=== PATIENT | female | born 1930 | race Caucasian/White ===

== ENCOUNTER 2018-12-06 06:52 | Inpatient (IN) | payer MEDICARE, OTHER ==
[2018-12-05 09:02] LABS: PARTIAL THROMBOPLASTIN TIME 31 SECONDS (22-32)
[2018-12-05 09:03] LABS: BASOPHILS % (AUTO) 0.9 % (0-1); EOSINOPHILS # (AUTO) 0.1 X10'3 (0-0.9); EOSINOPHILS % (AUTO) 1.9 % (0-6); HEMATOCRIT 34.3 % (35.0-45.0); HEMOGLOBIN 11.8 g/dl (12.0-16.0); LYMPHOCYTES # (AUTO) 1.1 X10'3 (1.1-4.8); MEAN CORPUSCULAR HEMOGLOBIN 35.7 PG (27.0-31.0); MEAN CORPUSCULAR HGB CONC 34.3 g/dL (33.0-36.5); MEAN CORPUSCULAR VOLUME 104.2 FL (78-98); MEAN PLATELET VOLUME 8.5 FL (7.4-10.4); MONOCYTES # (AUTO) 0.2 X10'3 (0-0.9); MONOCYTES % (AUTO) 7.1 % (2-12); NEUTROPHILS # (AUTO) 1.9 X10'3 (1.8-7.7); NEUTROPHILS % (AUTO) 57.1 % (42-75); PLATELET COUNT 114 X10'3 (140-440); RED CELL DISTRIBUTION WIDTH 14.5 % (11.5-14.5); WHITE BLOOD COUNT 3.2 X10'3 (4.5-11.0)
[2018-12-05 09:14] LABS: ALBUMIN 3.9 G/DL (3.4-5.0); ANION GAP 7 (8-16); BLOOD UREA NITROGEN 52 MG/DL (7-18); BUN/CREATININE RATIO 26.7 (6.6-38.0); CALCIUM 10.6 MG/DL (8.5-10.1); CHLORIDE 105 MMOL/L (99-107); CREATININE 1.95 MG/DL (0.40-0.90); GLUCOSE 88 MG/DL (70-104); POTASSIUM 4.3 MMOL/L (3.5-5.1); SODIUM 145 MMOL/L (135-145); TOTAL CARBON DIOXIDE 32.9 MMOL/L (24-32); eGFR 24 ML/MIN
[~2018-12-06] VITALS: Ht 154.9 cm; Wt 61.9 kg
[2018-12-06] VITALS (16 sets, daily range): BP systolic 98–158; BP diastolic 41–72
[~2018-12-06 06:52] MED LIST: ACID1TAB2 PO; ASPI-1053 PO; BIOT1TAB PO; CYAN500T63 PO; DOCU100C40 PO; FOLI-62 PO; HYDR12.522 PO; LISI40TA4 PO; MULT-1141 PO; NIT10P TD; OMEP40CA13 PO; OXYB5TAB80 PO; VERA240T PO; ZOC40T PO
[2018-12-06] MEDS ORDERED: diphenhydrAMINE 25mg capsule PO PRN ×2 (07:20→08:05)
[2018-12-06] MEDS ORDERED: LORazepam 0.5 MG tablet PO PRN ×2 (07:20→08:05)
[2018-12-06] MEDS ORDERED: sodium bicarbonate (8.4%) 1 mEq/ml syringe ONE (08:00)
[2018-12-06] MEDS ORDERED: amiodarone 50MG/ML inj IV ONE (08:00)
[2018-12-06] MEDS: normal saline 1,000 ML IV SCH ×2 (08:02→17:41)
[2018-12-06] MEDS ORDERED: LIDOcaine 1% (10mg/ml)w/preservative injection 20ml MDV ONE (08:03)
[2018-12-06] MEDS ORDERED: verapamil 2.5 mg/ml inj IV ONE (08:03)
[2018-12-06] MEDS ORDERED: nitroGLYCERIN-Tridil 50MG/D5W 250 ML IV ONE (08:03)
[2018-12-06] MEDS ORDERED: iohexol 350MG/ML 100ml bottle IV ONE (08:04)
[2018-12-06] MEDS ORDERED: iohexol 350 MG/ML 50ML vial IV ONE (08:04)
[2018-12-06] MEDS ORDERED: heparin 1,000unit/ml 10ml vial 10 ML ONE (08:04)
[2018-12-06] MEDS ORDERED: VERA120T7 PO (08:05)
[2018-12-06] MEDS ORDERED: FURO-150 PO (08:05)
[2018-12-06] MEDS ORDERED: LISI40TA4 PO (08:05)
[2018-12-06] MEDS ORDERED: ATOR80TA PO (08:05)
[2018-12-06] MEDS ORDERED: sodium bicarbonate (8.4%) inj. 100 ML in dextrose 5%-water 1,000 ML IV ONE (08:30)
[2018-12-06] MEDS ORDERED: midazolam 2 mg/2 ml injection ONE (08:32)
[2018-12-06] MEDS ORDERED: fentaNYL/PF 50MCG/1 ML 2ML syringe ONE ×2 (08:32→09:41)
[2018-12-06] MEDS ORDERED: heparin 10,000 units/1 ML INJ ONE (10:31)
[2018-12-06] MEDS ORDERED: rocuronium 10mg/ml inj IV ONE (10:35)
[2018-12-06] MEDS ORDERED: etomidate 2mg/ml inj. ONE (10:35)
[2018-12-06] MEDS ORDERED: amiodarone in dextrose, iso-osm 360mg/200ml bag IV ONE (10:36)
[2018-12-06] MEDS ORDERED: fentaNYL /PF 50mcg/ml 5ml ampule ONE (10:36)
[2018-12-06] MEDS ORDERED: sevoflurane 250ml liquid IH ONE (10:36)
[2018-12-06] MEDS ORDERED: ceFAZolin 1000mg inj ONE (11:22)
[2018-12-06] MEDS ORDERED: neostigmine methylsulfate 1 MG/ML 10ml vial ONE (12:31)
[2018-12-06 12:35] LABS: ISTAT CREATININE 1.7 mg/dL (0.6-1.1); ISTAT HGB 8.5 g/dl (12.0-16.0); ISTAT IONIZED CALCIUM 1.23 mmol/L (1.03-1.32); ISTAT K 3.5 mmol/L (3.5-5.1); POC BUN/CREATININE RATIO 28.2 (6.6-38.0)
[2018-12-06 12:51] LABS: ABG BASE EXCESS 1.4 mmol/L (-2.0-3.0); ABG HCO3 28.8 mmol/L (22.0-26.0); ABG OXYGEN SATURATION 96.5 % (95-98); ABG PH (T) 7.292 (7.350-7.450); FCOHb 0.3 % (0.5-1.5); FMetHb 0.2 % (0.3-1.12); TOTAL HEMOGLOBIN 10.1 G/dl (12.0-16.0)
[2018-12-06] MEDS: phenylephrine inj 20 MG in NS 250ml IV soln IV SCH ×3 (13:00→21:43)
--- NOTE | 2018-12-06 13:00 | NUR ---
Received from OR via , accompanied by Anesthesiologist Dr. Menendez and report given by Anesthesiolgist. Patient extibated whn Addendum: 12/06/18 at 1338 by Steffanie Yang RN patient extubated by Dr. Menendez when she arrived to room 2040. patient a&o, cl to right ij, ivf infusing as ordered, nichole infusing at mcg per min. 18 gauge piv to left ac. wound vac to right groin x2, at 125 cont as ordered. vss as charted.
--- NOTE | 2018-12-06 13:05 | NUR ---
patient recovered in icu room 2040
[2018-12-06] MEDS ORDERED: morphine 2 MG/ML inj. syringe IV PRN (13:15)
--- NOTE | 2018-12-06 13:15 | NUR ---
central saturated with serous drainage, dressing changed using sterile technique.
--- NOTE | 2018-12-06 13:41 | NUR ---
daughter flor at bedside
[2018-12-06] MEDS ORDERED: phenylephrine inj 20 MG in normal saline 250ml IV soln 248 ML IV SCH (13:45)
[2018-12-06] MEDS ORDERED: gelatin sponge, absorbable (Gelfoam 12-7MM) sponge TP ONE ×2 (13:50→13:55)
--- NOTE | 2018-12-06 13:58 | NUR ---
Bedside report given to Julee RN all questions and concerns addressed.
[2018-12-06] MEDS ORDERED: gelatin sponge, absorbable (Gelfoam-100 compressed) sponge TP ONE (15:05)
[2018-12-06] MEDS ORDERED: VERA300C6 PO (17:25)
[2018-12-06] MEDS ORDERED: FURO40TA4 PO (17:25)
--- NOTE | 2018-12-06 19:00 | NUR ---
Patient in room ICU 2040. I have received report from Summer MULLIGAN and had the opportunity to ask questions and assume patient care.
[2018-12-06] MEDS: docusate sod 100mg capsule PO SCH (20:00)
--- NOTE | 2018-12-06 20:30 | NUR ---
Dr Ridley at bedside, updated on patients current condition and concerns. POC reviewed. Will continue to monitor closely.
[2018-12-06 21:02] LABS: BASOPHILS % (AUTO) 0.4 % (0-1); EOSINOPHILS % (AUTO) 0.3 % (0-6); HEMATOCRIT 22.4 % (35.0-45.0); HEMOGLOBIN 7.8 g/dl (12.0-16.0); LYMPHOCYTES # (AUTO) 0.5 X10'3 (1.1-4.8); LYMPHOCYTES % (AUTO) 8.2 % (21-51); MEAN CORPUSCULAR HEMOGLOBIN 35.1 PG (27.0-31.0); MEAN CORPUSCULAR HGB CONC 34.9 g/dL (33.0-36.5); MEAN CORPUSCULAR VOLUME 100.6 FL (78-98); MEAN PLATELET VOLUME 8.8 FL (7.4-10.4); MONOCYTES # (AUTO) 0.4 X10'3 (0-0.9); MONOCYTES % (AUTO) 6.2 % (2-12); NEUTROPHILS # (AUTO) 5.6 X10'3 (1.8-7.7); NEUTROPHILS % (AUTO) 84.9 % (42-75); PLATELET COUNT 81 X10'3 (140-440); RED BLOOD COUNT 2.23 X10'6 (4.20-5.60); RED CELL DISTRIBUTION WIDTH 16.1 % (11.5-14.5); WHITE BLOOD COUNT 6.6 X10'3 (4.5-11.0)
[2018-12-06] MEDS: acetaminophen w/codeine (30MG) #3 tablet PO PRN (21:38)
[2018-12-07] VITALS (24 sets, daily range): BP systolic 85–122; BP diastolic 35–75
[2018-12-07] MEDS: phenylephrine inj 20 MG in NS 250ml IV soln IV SCH ×3 (01:22→19:50)
[2018-12-07 03:15] LABS: BASOPHILS % (AUTO) 0.6 % (0-1); EOSINOPHILS % (AUTO) 0.1 % (0-6); HEMATOCRIT 26.1 % (35.0-45.0); HEMOGLOBIN 9.1 g/dl (12.0-16.0); LYMPHOCYTES # (AUTO) 0.8 X10'3 (1.1-4.8); LYMPHOCYTES % (AUTO) 13.2 % (21-51); MEAN CORPUSCULAR HEMOGLOBIN 35.1 PG (27.0-31.0); MEAN CORPUSCULAR HGB CONC 34.9 g/dL (33.0-36.5); MEAN CORPUSCULAR VOLUME 100.4 FL (78-98); MONOCYTES # (AUTO) 0.5 X10'3 (0-0.9); MONOCYTES % (AUTO) 7.8 % (2-12); NEUTROPHILS # (AUTO) 4.8 X10'3 (1.8-7.7); NEUTROPHILS % (AUTO) 78.3 % (42-75); PLATELET COUNT 90 X10'3 (140-440); RED CELL DISTRIBUTION WIDTH 16.4 % (11.5-14.5); WHITE BLOOD COUNT 6.1 X10'3 (4.5-11.0)
[2018-12-07] MEDS: acetaminophen w/codeine (30MG) #3 tablet PO PRN ×2 (03:34→20:01)
[2018-12-07 04:07] LABS: ALANINE AMINOTRANSFERASE 42 U/L (12-78); ALBUMIN 3.3 G/DL (3.4-5.0); ALBUMIN/GLOBULIN RATIO 1.4 (1.1-1.5); ALKALINE PHOSPHATASE 49 IU/L (46-116); ANION GAP 8 (8-16); ASPARTATE AMINO TRANSFERASE 48 U/L (10-37); BILIRUBIN,TOTAL 1.9 MG/DL (0.1-1.0); BLOOD UREA NITROGEN 41 MG/DL (7-18); BUN/CREATININE RATIO 27.5 (6.6-38.0); CALCIUM 9.1 MG/DL (8.5-10.1); CHLORIDE 107 MMOL/L (99-107); CREATININE 1.49 MG/DL (0.40-0.90); GLUCOSE 101 MG/DL (70-104); MAGNESIUM 1.6 MG/DL (1.5-2.4); POTASSIUM 3.7 MMOL/L (3.5-5.1); SODIUM 146 MMOL/L (135-145); TOTAL CARBON DIOXIDE 31.3 MMOL/L (24-32); TOTAL PROTEIN 5.6 G/DL (6.4-8.2); eGFR 33 ML/MIN
[2018-12-07] MEDS: normal saline 1,000 ML IV SCH ×2 (05:03→08:58)
[2018-12-07 06:16] LABS: ISTAT HGB ART 10.9 g/dl (12.0-16.0); ISTAT Hct ART 32 %PCV (35-48); ISTAT O2 SATURATION ARTERIAL 98 % (95-98); ISTAT SOURCE ART
--- NOTE | 2018-12-07 06:28 | NUR ---
Problems reprioritized. Patient report given, questions answered & plan of care reviewed with Lev MULLIGAN.
[2018-12-07] MEDS: docusate sod 100mg capsule PO SCH ×2 (08:01→20:01)
[2018-12-07] MEDS ORDERED: ondansetron/PF 4mg/2ml inj ONE (09:57)
[2018-12-07] MEDS ORDERED: ondansetron/PF 4mg/2ml inj IV PRN (10:00)
[2018-12-07] MEDS: midodrine tablet 2.5 MG TABLET PO SCH ×2 (13:29→20:01)
--- NOTE | 2018-12-07 18:30 | NUR ---
Patient in room ICU 2040. I have received report from Lev MULLIGAN and had the opportunity to ask questions and assume patient care.
--- NOTE | 2018-12-07 20:00 | NUR ---
Patients BP continues to decrease. Increased per MD order. Will continue to monitor closely.
--- NOTE | 2018-12-07 22:00 | NUR ---
Patient wakes up and is confused to where she is. Patient acknowledges that she is confused and very pleasant. Reoriented patient to time and place. Patient currently sleeping. Daughter Carmen states that patient is normally wakes up at night ans is slightly confused and has vivid dreams.
[2018-12-08] VITALS (24 sets, daily range): BP systolic 91–125; BP diastolic 45–64
[2018-12-08] MEDS: phenylephrine inj 20 MG in NS 250ml IV soln IV SCH ×5 (00:12→23:54)
[2018-12-08 02:25] LABS: BASOPHILS # (AUTO) 0.1 X10'3 (0-0.2); BASOPHILS % (AUTO) 0.8 % (0-1); EOSINOPHILS # (AUTO) 0.1 X10'3 (0-0.9); EOSINOPHILS % (AUTO) 1.5 % (0-6); HEMATOCRIT 25.5 % (35.0-45.0); HEMOGLOBIN 8.8 g/dl (12.0-16.0); LYMPHOCYTES # (AUTO) 1.5 X10'3 (1.1-4.8); LYMPHOCYTES % (AUTO) 20.1 % (21-51); MEAN CORPUSCULAR HEMOGLOBIN 35.2 PG (27.0-31.0); MEAN CORPUSCULAR HGB CONC 34.3 g/dL (33.0-36.5); MEAN CORPUSCULAR VOLUME 102.7 FL (78-98); MEAN PLATELET VOLUME 8.6 FL (7.4-10.4); MONOCYTES # (AUTO) 0.7 X10'3 (0-0.9); MONOCYTES % (AUTO) 9.4 % (2-12); NEUTROPHILS # (AUTO) 4.9 X10'3 (1.8-7.7); NEUTROPHILS % (AUTO) 68.2 % (42-75); PLATELET COUNT 94 X10'3 (140-440); RED BLOOD COUNT 2.48 X10'6 (4.20-5.60); RED CELL DISTRIBUTION WIDTH 15.9 % (11.5-14.5); WHITE BLOOD COUNT 7.2 X10'3 (4.5-11.0)
[2018-12-08 02:35] LABS: ALBUMIN 2.9 G/DL (3.4-5.0); ANION GAP 4 (8-16); BLOOD UREA NITROGEN 33 MG/DL (7-18); BUN/CREATININE RATIO 23.1 (6.6-38.0); CALCIUM 9.7 MG/DL (8.5-10.1); CHLORIDE 107 MMOL/L (99-107); CREATININE 1.43 MG/DL (0.40-0.90); GLUCOSE 106 MG/DL (70-104); POTASSIUM 3.8 MMOL/L (3.5-5.1); SODIUM 143 MMOL/L (135-145); TOTAL CARBON DIOXIDE 31.9 MMOL/L (24-32); eGFR 35 ML/MIN
[2018-12-08 02:47] LABS: MAGNESIUM 1.6 MG/DL (1.5-2.4)
[2018-12-08] MEDS ORDERED: amiodarone 150mg/dext, iso-os 100 ML IV ONE (03:20)
[2018-12-08] MEDS ORDERED: magnesium 4gm in 100ml NS 100 ML IV PRN (03:20)
--- NOTE | 2018-12-08 03:24 | NUR ---
patient had 36 beat run of VTA, labs drawn, Dr Ridley call and new orders received. Per Dr Ridley keep MG above 2 and K above 4. One time dose of amio. Will continue to monitor.
[2018-12-08] MEDS: magnesium 2GM in 50ml NS 50 ML IV PRN (03:40)
[2018-12-08] MEDS: potassium Cl 20mEq/100mL bag 100 ML IV PRN ×2 (04:12→04:17)
[2018-12-08] MEDS: docusate sod 100mg capsule PO SCH ×2 (08:04→20:46)
[2018-12-08] MEDS: midodrine tablet 2.5 MG TABLET PO SCH (08:04)
[2018-12-08 09:38] LABS: MAGNESIUM 2.1 MG/DL (1.5-2.4); POTASSIUM 4.5 MMOL/L (3.5-5.1)
[2018-12-08] MEDS ORDERED: normal saline 500ml IV soln 500 ML IV ONE (17:40)
[2018-12-08] MEDS: midodrine 5mg tablet PO SCH (17:56)
[2018-12-08] MEDS ORDERED: midodrine 5mg tablet PO SCH (18:00)
[2018-12-08] MEDS: acetaminophen w/codeine (30MG) #3 tablet PO PRN (20:47)
[2018-12-08] MEDS: normal saline 1,000 ML IV SCH (21:03)
[2018-12-09] VITALS (22 sets, daily range): BP systolic 94–113; BP diastolic 42–60
[2018-12-09 03:59] LABS: BASOPHILS % (AUTO) 0.6 % (0-1); EOSINOPHILS # (AUTO) 0.2 X10'3 (0-0.9); EOSINOPHILS % (AUTO) 2.9 % (0-6); HEMATOCRIT 24.5 % (35.0-45.0); HEMOGLOBIN 8.3 g/dl (12.0-16.0); LYMPHOCYTES # (AUTO) 1.7 X10'3 (1.1-4.8); LYMPHOCYTES % (AUTO) 22.1 % (21-51); MEAN CORPUSCULAR HEMOGLOBIN 35.1 PG (27.0-31.0); MEAN CORPUSCULAR HGB CONC 33.8 g/dL (33.0-36.5); MEAN CORPUSCULAR VOLUME 103.9 FL (78-98); MEAN PLATELET VOLUME 8.8 FL (7.4-10.4); MONOCYTES # (AUTO) 0.5 X10'3 (0-0.9); MONOCYTES % (AUTO) 7.2 % (2-12); NEUTROPHILS # (AUTO) 5.1 X10'3 (1.8-7.7); NEUTROPHILS % (AUTO) 67.2 % (42-75); PLATELET COUNT 102 X10'3 (140-440); RED BLOOD COUNT 2.35 X10'6 (4.20-5.60); RED CELL DISTRIBUTION WIDTH 15.8 % (11.5-14.5); WHITE BLOOD COUNT 7.6 X10'3 (4.5-11.0)
[2018-12-09] MEDS: phenylephrine inj 20 MG in NS 250ml IV soln IV SCH ×2 (04:03→18:45)
[2018-12-09 04:15] LABS: ALANINE AMINOTRANSFERASE 39 U/L (12-78); ALBUMIN 2.8 G/DL (3.4-5.0); ALBUMIN/GLOBULIN RATIO 1.1 (1.1-1.5); ALKALINE PHOSPHATASE 44 IU/L (46-116); ANION GAP 5 (8-16); ASPARTATE AMINO TRANSFERASE 40 U/L (10-37); BILIRUBIN,TOTAL 1.2 MG/DL (0.1-1.0); BLOOD UREA NITROGEN 33 MG/DL (7-18); BUN/CREATININE RATIO 23.7 (6.6-38.0); CALCIUM 8.7 MG/DL (8.5-10.1); CHLORIDE 107 MMOL/L (99-107); CREATININE 1.39 MG/DL (0.40-0.90); GLUCOSE 103 MG/DL (70-104); MAGNESIUM 1.9 MG/DL (1.5-2.4); POTASSIUM 4.4 MMOL/L (3.5-5.1); SODIUM 141 MMOL/L (135-145); TOTAL CARBON DIOXIDE 28.7 MMOL/L (24-32); TOTAL PROTEIN 5.4 G/DL (6.4-8.2); eGFR 36 ML/MIN
--- NOTE | 2018-12-09 06:30 | NUR ---
Patient in room ICU 2040. I have received report from ESE Ladd and had the opportunity to ask questions and assume patient care.
--- NOTE | 2018-12-09 06:54 | NUR ---
report to Jorge MULLIGAN
[2018-12-09] MEDS: midodrine 5mg tablet PO SCH ×2 (07:47→20:20)
[2018-12-09] MEDS: docusate sod 100mg capsule PO SCH ×2 (07:47→20:20)
--- NOTE | 2018-12-09 08:32 | NUR ---
UA sent @0800. notified of possible transfer to [facility] for a TAVER r/t Aortic Stenosis. Awaiting notfication
[2018-12-09 09:39] LABS: CLARITY,URINE CLEAR (Clear); COLOR,URINE YELLOW (Yellow); GLUCOSE, URINE NEGATIVE (Neg); KETONES,URINE NEGATIVE (Neg); LEUKOCYTE ESTERASE ,URINE NEGATIVE (Neg); NITRITES, URINE NEGATIVE (Neg); OCCULT BLOOD,URINE SMALL (Neg); PH,URINE 5.5 (4.8-8.0); PROTEIN,URINE TRACE mg/dl (Neg)
[2018-12-09 09:41] LABS: TOTAL PROTEIN,URINE RANDOM 40.1 MG/DL
[2018-12-09 09:43] LABS: SODIUM,URINE RANDOM < 15 MEQ/L
[2018-12-09 09:45] LABS: UA COLLECTION TYPE FOLEY CATH
[2018-12-09 09:46] LABS: BACTERIA,URINE FEW /HPF (Neg); MUCUS STRANDS FEW /LPF (Neg); SQUAMOUS EPITHELIAL CELL,UR FEW /LPF (FEW); TRANSITIONAL EPI CELLS,URINE FEW /HPF; WBC,URINE 0-4 /HPF (0-4)
[2018-12-09 09:47] LABS: COARSE GRANULAR CAST 0-3 /LPF (NEGATIVE); FINE GRANULAR CAST 0-3 /LPF (NEGATIVE)
[2018-12-09 10:33] LABS: UA EOSINOPHILS NO EOS /HPF
--- NOTE | 2018-12-09 18:15 | NUR ---
Report to ESE Fiore
--- NOTE | 2018-12-09 18:30 | NUR ---
Patient in room ICU 2040. I have received report from ESE Patel and had the opportunity to ask questions and assume patient care.
[2018-12-09] MEDS ORDERED: magnesium hydroxide 30ml (MOM) UD suspension PO ONE (19:15)
[2018-12-09] MEDS: normal saline 1,000 ML IV SCH (22:47)
[2018-12-09] MEDS: acetaminophen w/codeine (30MG) #3 tablet PO PRN (23:55)
[2018-12-10] VITALS (21 sets, daily range): BP systolic 90–164; BP diastolic 37–97
[2018-12-10] MEDS: phenylephrine inj 20 MG in NS 250ml IV soln IV SCH ×3 (01:37→16:05)
[2018-12-10 03:45] LABS: BASOPHILS % (AUTO) 0.5 % (0-1); EOSINOPHILS # (AUTO) 0.3 X10'3 (0-0.9); EOSINOPHILS % (AUTO) 3.7 % (0-6); HEMOGLOBIN 8.2 g/dl (12.0-16.0); LYMPHOCYTES # (AUTO) 1.7 X10'3 (1.1-4.8); LYMPHOCYTES % (AUTO) 23.5 % (21-51); MEAN CORPUSCULAR HEMOGLOBIN 35.5 PG (27.0-31.0); MEAN CORPUSCULAR HGB CONC 34.1 g/dL (33.0-36.5); MEAN CORPUSCULAR VOLUME 103.8 FL (78-98); MEAN PLATELET VOLUME 8.4 FL (7.4-10.4); MONOCYTES # (AUTO) 0.5 X10'3 (0-0.9); MONOCYTES % (AUTO) 6.6 % (2-12); NEUTROPHILS # (AUTO) 4.7 X10'3 (1.8-7.7); NEUTROPHILS % (AUTO) 65.7 % (42-75); PLATELET COUNT 118 X10'3 (140-440); RED BLOOD COUNT 2.32 X10'6 (4.20-5.60); WHITE BLOOD COUNT 7.2 X10'3 (4.5-11.0)
[2018-12-10 04:00] LABS: ALANINE AMINOTRANSFERASE 36 U/L (12-78); ALBUMIN 2.2 G/DL (3.4-5.0); ALKALINE PHOSPHATASE 39 IU/L (46-116); ANION GAP 8 (8-16); ASPARTATE AMINO TRANSFERASE 34 U/L (10-37); BILIRUBIN,TOTAL 1.1 MG/DL (0.1-1.0); BLOOD UREA NITROGEN 32 MG/DL (7-18); BUN/CREATININE RATIO 30.5 (6.6-38.0); CALCIUM 7.1 MG/DL (8.5-10.1); CHLORIDE 111 MMOL/L (99-107); CREATININE 1.05 MG/DL (0.40-0.90); GLUCOSE 91 MG/DL (70-104); MAGNESIUM 1.6 MG/DL (1.5-2.4); POTASSIUM 3.7 MMOL/L (3.5-5.1); SODIUM 142 MMOL/L (135-145); TOTAL CARBON DIOXIDE 22.9 MMOL/L (24-32); TOTAL PROTEIN 4.4 G/DL (6.4-8.2); eGFR 50 ML/MIN
[2018-12-10] MEDS: magnesium 2GM in 50ml NS 50 ML IV PRN (04:25)
--- NOTE | 2018-12-10 06:48 | NUR ---
Problems reprioritized. Patient report given, questions answered & plan of care reviewed with ESE Gracia.
--- NOTE | 2018-12-10 07:00 | NUR ---
Patient in room ICU 2040. I have received report from ESE Kim and had the opportunity to ask questions and assume patient care.
[2018-12-10] MEDS: docusate sod 100mg capsule PO SCH ×2 (07:49→20:06)
[2018-12-10] MEDS: midodrine 5mg tablet PO SCH ×2 (07:49→20:06)
[2018-12-10] MEDS: potassium Cl 20mEq/100mL bag 100 ML IV PRN (07:51)
[2018-12-10] MEDS: normal saline 1,000 ML IV SCH ×2 (13:03→17:09)
[2018-12-10] MEDS ORDERED: pantoprazole 40mg Tablet.DR PO SCH (17:30)
--- NOTE | 2018-12-10 18:43 | NUR ---
Problems reprioritized. Patient report given, questions answered & plan of care reviewed with ESE Wilson.
--- NOTE | 2018-12-10 18:45 | NUR ---
Patient in room ICU 2040. I have received report from ESE Gracia and had the opportunity to ask questions and assume patient care.
--- NOTE | 2018-12-10 19:30 | NUR ---
Patient to be transferred to [facility] for TAVR procedure. [facility] called with bed assignment and accepting MD. support architect aware and is working on transport for patient.
--- NOTE | 2018-12-10 20:30 | NUR ---
Report given to transporting [employer] Bogdan with [employer]. All questions answered.
--- NOTE | 2018-12-10 20:41 | NUR ---
Report called to [facility] [place] [facility]. Bed # [id number]. Alexis RN is the accepting RN. All questions answered. [facility] transport team here, ETA to [facility] approx. 1.5 hours.
[2018-12-10] MEDS ORDERED: atorvastatin 20mg tablet PO SCH (21:00)
--- NOTE | 2018-12-10 21:50 | NUR ---
Patient transferred to transport [facility]. Wound Vac with patient. Patient placed on transport monitor by transport team. IV medications infusing per MD order. Addendum: 12/10/18 at 2211 by Kylah Rowe RN Patients daughter Carmen at bedside during transfer. All patients personal belongings home with daughter. Patient transferred out of unit to [facility] helicopter without incident.
[2018-12-11] MEDS ORDERED: aspirin 81mg tab.chew PO SCH (08:00)
[2018-12-12 12:41] LABS: ISTAT Hct MIX 32 %PCV (35-48); ISTAT O2 SATURATION MIX VENOUS 60 % (60-80); ISTAT SOURCE MIX
== END 2018-12-10 22:51 | disposition short-term general hospital (02) | DRG 252 ==
LOC: SSTAY O 06:52 → ICU 2S 13:00
PROVIDERS: ADMIT Internal Medicine Cardiovascular Disease; ATTEND Internal Medicine Cardiovascular Disease
PROC: 04QK0ZZ Repair Right Femoral Artery, Open Approach (ICD-10-PCS; 2018-12-06)
PROC: 02HV33Z Insertion of Infusion Device into Superior Vena Cava, Percutaneous Approach (ICD-10-PCS; 2018-12-06)
PROC: 4A023N8 Measurement of Cardiac Sampling and Pressure, Bilateral, Percutaneous Approach (ICD-10-PCS; 2018-12-06)
PROC: B2111ZZ Fluoroscopy of Multiple Coronary Arteries using Low Osmolar Contrast (ICD-10-PCS; 2018-12-06)
PROC: B2151ZZ Fluoroscopy of Left Heart using Low Osmolar Contrast (ICD-10-PCS; 2018-12-06)
PROC: 30233N1 Transfusion of Nonautologous Red Blood Cells into Peripheral Vein, Percutaneous Approach (ICD-10-PCS; principal; 2018-12-06 10:36)
DX: I08.3 Combined rheumatic disorders of mitral, aortic and tricuspid valves (principal); N17.0 Acute kidney failure with tubular necrosis; I13.0 Hypertensive heart and chronic kidney disease with heart failure and stage 1 through stage 4 chronic kidney disease, or unspecified chronic kidney disease; I50.32 Chronic diastolic (congestive) heart failure; I77.0 Arteriovenous fistula, acquired; E78.5 Hyperlipidemia, unspecified; I25.10 Atherosclerotic heart disease of native coronary artery without angina pectoris; R58 Hemorrhage, not elsewhere classified; I27.20 Pulmonary hypertension, unspecified; I95.9 Hypotension, unspecified; K21.9 Gastro-esophageal reflux disease without esophagitis; M19.90 Unspecified osteoarthritis, unspecified site; G47.33 Obstructive sleep apnea (adult) (pediatric); Z96.652 Presence of left artificial knee joint; N18.3 Chronic kidney disease, stage 3 (moderate); Z80.0 Family history of malignant neoplasm of digestive organs; Z90.13 Acquired absence of bilateral breasts and nipples; Z88.6 Allergy status to analgesic agent; Z79.82 Long term (current) use of aspirin; Z88.8 Allergy status to other drugs, medicaments and biological substances; Z79.899 Other long term (current) drug therapy; Z82.49 Family history of ischemic heart disease and other diseases of the circulatory system; Z98.42 Cataract extraction status, left eye; Z98.41 Cataract extraction status, right eye; Z90.49 Acquired absence of other specified parts of digestive tract; Z83.3 Family history of diabetes mellitus
CPT/HCPCS: 36415; 36600; 71045; 76775; 80047; 80048; 80053; 81001; 82570; 82803; 83735; 83880; 84132; 84156; 84300; 85014; 85018; 85025; 85610; 85730; 86885; 86900; 86901; 86920; 87207; 93005; 93460; 93926; 94002; 97116; 97161; 97530; 99152; 99153; A4618; A4620; A5120; A6258; A7000; C1760; C1769; C1894; G0378; J0282; J0690; J1644; J2001; J2250; J2370; J2405; J2710; J3010; J3475; J3480; J3490; J7030; J7040; J7050; J7120; P9016; Q0163; Q9967

== ENCOUNTER 2019-01-03 10:30 | Outpatient (CLI) | payer MEDICARE, OTHER ==
[~2019-01-03 10:30] MED LIST changes: -ACID1TAB2 PO; +ATOR80TA PO; -BIOT1TAB PO; -CYAN500T63 PO; -DOCU100C40 PO; -FOLI-62 PO; +FURO40TA4 PO; -HYDR12.522 PO; -MULT-1141 PO; -NIT10P TD; -OXYB5TAB80 PO; -VERA240T PO; +VERA300C6 PO; -ZOC40T PO
== END 2019-01-03 23:59 | disposition home or self-care (01) ==
LOC: VAS 10:30
PROVIDERS: ATTEND Internal Medicine Cardiovascular Disease
DX: M79.604 Pain in right leg (principal); R60.0 Localized edema; I10 Essential (primary) hypertension
CPT/HCPCS: 93971

== ENCOUNTER 2019-04-12 10:40 | Emergency (ER) | payer MEDICARE, OTHER ==
[~2019-04-12] VITALS: Ht 157.5 cm; Wt 64.0 kg
[2019-04-12 11:14] LABS: BASOPHILS % (AUTO) 1.1 % (0-1); EOSINOPHILS # (AUTO) 0.2 X10'3 (0-0.9); EOSINOPHILS % (AUTO) 5.2 % (0-6); HEMATOCRIT 31.2 % (35.0-45.0); HEMOGLOBIN 10.8 g/dl (12.0-16.0); LYMPHOCYTES # (AUTO) 1.1 X10'3 (1.1-4.8); LYMPHOCYTES % (AUTO) 27.3 % (21-51); MEAN CORPUSCULAR HEMOGLOBIN 35.8 PG (27.0-31.0); MEAN CORPUSCULAR HGB CONC 34.7 g/dL (33.0-36.5); MEAN CORPUSCULAR VOLUME 103.1 FL (78-98); MEAN PLATELET VOLUME 8.2 FL (7.4-10.4); MONOCYTES # (AUTO) 0.3 X10'3 (0-0.9); MONOCYTES % (AUTO) 6.6 % (2-12); NEUTROPHILS # (AUTO) 2.5 X10'3 (1.8-7.7); NEUTROPHILS % (AUTO) 59.8 % (42-75); PLATELET COUNT 160 X10'3 (140-440); RED BLOOD COUNT 3.03 X10'6 (4.20-5.60); RED CELL DISTRIBUTION WIDTH 15.1 % (11.5-14.5); WHITE BLOOD COUNT 4.1 X10'3 (4.5-11.0)
[2019-04-12 11:23] LABS: ALANINE AMINOTRANSFERASE 41 U/L (12-78); ALBUMIN 3.8 G/DL (3.4-5.0); ALBUMIN/GLOBULIN RATIO 1.3 (1.1-1.5); ALKALINE PHOSPHATASE 71 IU/L (46-116); ANION GAP 6 (8-16); ASPARTATE AMINO TRANSFERASE 79 U/L (10-37); BILIRUBIN,TOTAL 1.3 MG/DL (0.1-1.0); BLOOD UREA NITROGEN 25 MG/DL (7-18); BUN/CREATININE RATIO 16.7 (6.6-38.0); CALCIUM 9.7 MG/DL (8.5-10.1); CHLORIDE 106 MMOL/L (99-107); GLUCOSE 101 MG/DL (70-104); POTASSIUM 4.6 MMOL/L (3.5-5.1); SODIUM 141 MMOL/L (135-145); TOTAL CARBON DIOXIDE 29.1 MMOL/L (24-32); TOTAL PROTEIN 6.7 G/DL (6.4-8.2); eGFR 33 ML/MIN
[2019-04-12 11:27] LABS: AMYLASE 94 U/L (25-115); TROPONIN I 0.05 NG/ML (0.0-0.05)
[2019-04-12 11:39] LABS: LYMPHOCYTES % (MANUAL) 30 % (21-51); TOTAL CELLS COUNTED 100
[2019-04-12 11:40] LABS: EOSINOPHILS % (MANUAL) 4 % (0-6); PLATELET ESTIMATE NORMAL
[2019-04-12] MEDS ORDERED: niCARDipine-NS 40mg/200ml IVPB 200 ML IV SCH (12:20)
[2019-04-12 17:11] VITALS: BP 177/98
== END 2019-04-12 17:13 | disposition short-term general hospital (02) ==
LOC: ER 10:40
DX: I60.9 Nontraumatic subarachnoid hemorrhage, unspecified (principal); S06.5X9A Traumatic subdural hemorrhage with loss of consciousness of unspecified duration, initial encounter; S61.412A Laceration without foreign body of left hand, initial encounter; S61.411A Laceration without foreign body of right hand, initial encounter; I25.10 Atherosclerotic heart disease of native coronary artery without angina pectoris; I10 Essential (primary) hypertension; K21.9 Gastro-esophageal reflux disease without esophagitis; M19.90 Unspecified osteoarthritis, unspecified site; Z98.890 Other specified postprocedural states; Z88.0 Allergy status to penicillin; Z88.5 Allergy status to narcotic agent; Z88.8 Allergy status to other drugs, medicaments and biological substances; Z79.82 Long term (current) use of aspirin; Z79.899 Other long term (current) drug therapy; W18.39XA Other fall on same level, initial encounter; Y93.89 Activity, other specified; Y92.89 Other specified places as the place of occurrence of the external cause; Y99.8 Other external cause status
CPT/HCPCS: 36415; 70450; 71045; 72125; 73030; 80053; 82150; 84484; 85007; 85025; 93005; 99285

== ENCOUNTER 2019-09-14 22:11 | Inpatient (IN) | payer MEDICARE, OTHER ==
[~2019-09-14] VITALS: Ht 167.6 cm; Wt 69.0 kg
--- NOTE | 2019-09-14 22:53 | NUR ---
PT'S DAUGHTER ROSY- PHONE NUMBER [phone]
[2019-09-15] VITALS (18 sets, daily range): BP systolic 105–193; BP diastolic 37–78
[2019-09-15] MEDS ORDERED: morphine 4 MG/ML inj SYRINge IV ONE (00:30)
[2019-09-15] MEDS ORDERED: ketorolac trometh. 30mg/ml inj. IV ONE (00:30)
[2019-09-15 01:35] LABS: ALBUMIN 3.8 G/DL (3.4-5.0); ANION GAP 6 (8-16); BLOOD UREA NITROGEN 34 MG/DL (7-18); CALCIUM 9.4 MG/DL (8.5-10.1); CHLORIDE 107 MMOL/L (99-107); CREATININE 1.62 MG/DL (0.40-0.90); GLUCOSE 139 MG/DL (70-104); SODIUM 140 MMOL/L (135-145); TOTAL CARBON DIOXIDE 27.3 MMOL/L (24-32); eGFR 30 ML/MIN
[2019-09-15 01:49] LABS: BASOPHILS % (AUTO) 0.4 % (0-1); EOSINOPHILS # (AUTO) 0.2 X10'3 (0-0.9); EOSINOPHILS % (AUTO) 2.9 % (0-6); HEMATOCRIT 31.7 % (35.0-45.0); LYMPHOCYTES # (AUTO) 1.3 X10'3 (1.1-4.8); LYMPHOCYTES % (AUTO) 19.3 % (21-51); MEAN CORPUSCULAR HEMOGLOBIN 36.1 PG (27.0-31.0); MEAN CORPUSCULAR HGB CONC 34.7 g/dL (33.0-36.5); MEAN CORPUSCULAR VOLUME 103.9 FL (78-98); MEAN PLATELET VOLUME 8.8 FL (7.4-10.4); MONOCYTES # (AUTO) 0.5 X10'3 (0-0.9); NEUTROPHILS # (AUTO) 4.9 X10'3 (1.8-7.7); NEUTROPHILS % (AUTO) 70.4 % (42-75); PLATELET COUNT 161 X10'3 (140-440); RED BLOOD COUNT 3.05 X10'6 (4.20-5.60); RED CELL DISTRIBUTION WIDTH 13.7 % (11.5-14.5); WHITE BLOOD COUNT 6.9 X10'3 (4.5-11.0)
[2019-09-15 01:54] LABS: POTASSIUM 4.6 MMOL/L (3.5-5.1)
[2019-09-15] MEDS ORDERED: potassium CL 10mEq/100ml bag 100 ML IV PRN ×2 (03:00)
[2019-09-15] MEDS ORDERED: ondansetron/PF 4mg/2ml inj IV PRN ×2 (03:00→07:25)
[2019-09-15] MEDS ORDERED: potassium Cl 20 mEq SR tablet PO PRN ×2 (03:00)
[2019-09-15] MEDS ORDERED: morphine 2 MG/ML inj. syringe IV PRN ×3 (03:00→07:25)
[2019-09-15] MEDS ORDERED: magnesium hydroxide 30ml (MOM) UD suspension PO PRN (03:00)
[2019-09-15] MEDS ORDERED: acetaminophen 325mg tablet PO PRN (03:00)
[2019-09-15] MEDS ORDERED: mag hydrox/Alum hydrox/simeth 30ml oral suspension PO PRN (03:00)
--- NOTE | 2019-09-15 03:25 | NUR ---
Received report from Dm MULLIGAN in the ER. Patient is being brought up to O/N and will be in room 4021A.
[2019-09-15] MEDS: normal saline 1000ml 1,000 ML IV SCH ×2 (04:12→20:10)
--- NOTE | 2019-09-15 06:22 | NUR ---
Problems reprioritized. Patient report given, questions answered & plan of care reviewed with Angela MULLIGAN.
[2019-09-15] MEDS ORDERED: TRANEXAMIC ACID 1 GM IN NACL,ISO-OS 100 ML IV ONE (07:00)
[2019-09-15] MEDS ORDERED: ringers solution, lacted 1,000 ML IV SCH (07:21)
[2019-09-15] MEDS ORDERED: morphine 4 MG/ML inj SYRINge IV PRN (07:25)
[2019-09-15] MEDS ORDERED: proCHLORperazine 10 MG/2 ml inj IV PRN (07:25)
[2019-09-15] MEDS ORDERED: meperidine/PF 25mg/ml syringe IV PRN ×3 (07:25)
[2019-09-15] MEDS: lisinopril 20mg tablet PO SCH (07:44)
[2019-09-15] MEDS: amiodarone 100mg tablet PO SCH (07:44)
[2019-09-15] MEDS: pantoprazole 40mg Tablet.DR PO SCH (07:44)
[2019-09-15] MEDS: K and/or MAG REPLACEMENT MC SCH ×2 (08:00→19:36)
[2019-09-15] MEDS ORDERED: ePHEDrine 50MG/ML INJ. ONE (08:20)
[2019-09-15] MEDS ORDERED: fentaNYL/PF 50MCG/1 ML 2ML syringe ONE (08:29)
[2019-09-15] MEDS ORDERED: midazolam 2 mg/2 ml injection ONE (08:29)
[2019-09-15] MEDS ORDERED: ceFAZolin 1000mg inj ONE ×2 (09:02)
[2019-09-15] MEDS ORDERED: vancomycin 1,000mg inj ONE (09:07)
[2019-09-15] MEDS ORDERED: ondansetron/PF 4mg/2ml inj ONE (09:38)
--- NOTE | 2019-09-15 09:45 | NUR ---
Received from OR via BED , accompanied by Anesthesiologist DR SHIN and report given by Anesthesiolgist. PATIENT WAKING UP, DENIES PAIN, V/S WNL, NEUROVASCULAR CHECKS INTACT, 20G PIV LUE , MADIE DRESSING TO RIGHT HIP CDI W/ COLD POWDER PACK AND SENSATION T-10.
--- NOTE | 2019-09-15 10:45 | NUR ---
PATIENT ORIENTATION BACK TO BASELINE, DENIES PAIN, V/S WNL, NEUROVASCULAR CHECKS INTACT, 20G PIV LUE , MADIE DRESSING TO RIGHT HIP CDI W/ COLD POWDER PACK AND IMMOBILIZER TO RLE, SENSATION T-12. F/C DRAINING CLEAR YELLOW URINE.. PATIENT TAKEN TO 4021A WITH ALL BELONGINGS AND HOOKED UP TO MONITORS IN ROOM AND ON TELE , REPORT GIVEN TO BAR TACKER SEWING MACHINE WHO HAS TAKEN OVER PATIENT CARE.
[2019-09-15] MEDS ORDERED: VERA80TA7 PO (13:03)
[2019-09-15] MEDS: ceFAZolin 2gm in dextrose, iso 50 ML IV SCH ×2 (16:27→23:34)
--- NOTE | 2019-09-15 18:11 | NUR ---
Problems reprioritized. Patient report given, questions answered & plan of care reviewed with Winter MULLIGAN.
--- NOTE | 2019-09-15 18:23 | NUR ---
Patient in room ORTHO 4021. I have received report from Angela MULLIGAN and had the opportunity to ask questions and assume patient care.
[2019-09-15] MEDS ORDERED: VANCOMYCIN 1,500MG inj. 1,500 MG in normal saline 500ml IV soln 300 ML IV SCH (20:00)
[2019-09-15] MEDS: atorvastatin 20mg tablet PO SCH (20:10)
[2019-09-15] MEDS: traMADol 50MG tablet PO PRN (21:16)
[2019-09-16] VITALS (13 sets, daily range): BP systolic 120–164; BP diastolic 40–75
[2019-09-16] MEDS: traMADol 50MG tablet PO PRN ×4 (00:51→18:37)
--- NOTE | 2019-09-16 06:14 | NUR ---
Problems reprioritized. Patient report given, questions answered & plan of care reviewed with Marti MULLIGAN.
[2019-09-16 06:51] LABS: BASOPHILS # (AUTO) 0.1 X10'3 (0-0.2); BASOPHILS % (AUTO) 0.8 % (0-1); EOSINOPHILS # (AUTO) 0.2 X10'3 (0-0.9); EOSINOPHILS % (AUTO) 2.7 % (0-6); LYMPHOCYTES # (AUTO) 0.5 X10'3 (1.1-4.8); LYMPHOCYTES % (AUTO) 7.8 % (21-51); MEAN CORPUSCULAR HGB CONC 34.4 g/dL (33.0-36.5); MEAN CORPUSCULAR VOLUME 104.7 FL (78-98); MEAN PLATELET VOLUME 8.6 FL (7.4-10.4); MONOCYTES # (AUTO) 0.5 X10'3 (0-0.9); MONOCYTES % (AUTO) 6.8 % (2-12); NEUTROPHILS # (AUTO) 5.7 X10'3 (1.8-7.7); NEUTROPHILS % (AUTO) 81.9 % (42-75); PLATELET COUNT 114 X10'3 (140-440); RED BLOOD COUNT 1.93 X10'6 (4.20-5.60); RED CELL DISTRIBUTION WIDTH 13.8 % (11.5-14.5)
[2019-09-16 07:03] LABS: ALANINE AMINOTRANSFERASE 33 U/L (12-78); ALBUMIN 2.5 G/DL (3.4-5.0); ALBUMIN/GLOBULIN RATIO 1.1 (1.1-1.5); ALKALINE PHOSPHATASE 51 IU/L (46-116); ANION GAP 6 (8-16); ASPARTATE AMINO TRANSFERASE 63 U/L (10-37); BILIRUBIN,TOTAL 0.9 MG/DL (0.1-1.0); BLOOD UREA NITROGEN 31 MG/DL (7-18); BUN/CREATININE RATIO 23.3 (6.6-38.0); CALCIUM 8.4 MG/DL (8.5-10.1); CHLORIDE 108 MMOL/L (99-107); CREATININE 1.33 MG/DL (0.40-0.90); GLUCOSE 111 MG/DL (70-104); POTASSIUM 4.3 MMOL/L (3.5-5.1); SODIUM 139 MMOL/L (135-145); TOTAL CARBON DIOXIDE 24.9 MMOL/L (24-32); TOTAL PROTEIN 4.8 G/DL (6.4-8.2); eGFR 38 ML/MIN
[2019-09-16 07:11] LABS: HEMOGLOBIN 6.9 g/dl (12.0-16.0)
[2019-09-16 07:12] LABS: HEMATOCRIT 20.2 % (35.0-45.0)
--- NOTE | 2019-09-16 07:15 | NUR ---
Received Critical Lab Results for this patient. Hgb = 6.0 and Hct=20.2. Paged Dr. Pires to inform of critical labs. Dr. Elliot Hernandez arrived to bedside at approximately 0800 and ordered 2 units PRBC to infuse today.
[2019-09-16] MEDS: pantoprazole 40mg Tablet.DR PO SCH (07:36)
[2019-09-16] MEDS: amiodarone 100mg tablet PO SCH (07:36)
[2019-09-16] MEDS: lisinopril 20mg tablet PO SCH (07:37)
[2019-09-16] MEDS: normal saline 1000ml 1,000 ML IV SCH (07:49)
[2019-09-16] MEDS: K and/or MAG REPLACEMENT MC SCH ×2 (08:00→18:48)
[2019-09-16] MEDS ORDERED: enoxaparin 40mg/0.4ml syringe SUBCUT SCH (08:00)
[2019-09-16] MEDS ORDERED: R PO PRN (10:06)
[2019-09-16 19:19] LABS: HEMATOCRIT 29.3 % (35.0-45.0); MEAN CORPUSCULAR HEMOGLOBIN 33.5 PG (27.0-31.0); MEAN CORPUSCULAR HGB CONC 34.3 g/dL (33.0-36.5); MEAN CORPUSCULAR VOLUME 97.5 FL (78-98); MEAN PLATELET VOLUME 8.6 FL (7.4-10.4); PLATELET COUNT 109 X10'3 (140-440); RED CELL DISTRIBUTION WIDTH 17.3 % (11.5-14.5); WHITE BLOOD COUNT 8.6 X10'3 (4.5-11.0)
[2019-09-16] MEDS: atorvastatin 20mg tablet PO SCH (20:45)
[2019-09-17 02:00] VITALS: BP 160/69
--- NOTE | 2019-09-17 05:59 | NUR ---
REPORT GIVEN TO ESE CORCORAN.
[2019-09-17 06:00] VITALS: BP 163/60
[2019-09-17 06:18] LABS: BASOPHILS % (AUTO) 0.6 % (0-1); EOSINOPHILS # (AUTO) 0.4 X10'3 (0-0.9); EOSINOPHILS % (AUTO) 4.3 % (0-6); HEMATOCRIT 26.4 % (35.0-45.0); HEMOGLOBIN 9.1 g/dl (12.0-16.0); LYMPHOCYTES # (AUTO) 0.8 X10'3 (1.1-4.8); LYMPHOCYTES % (AUTO) 10.1 % (21-51); MEAN CORPUSCULAR HEMOGLOBIN 34.1 PG (27.0-31.0); MEAN CORPUSCULAR HGB CONC 34.6 g/dL (33.0-36.5); MEAN CORPUSCULAR VOLUME 98.3 FL (78-98); MEAN PLATELET VOLUME 8.2 FL (7.4-10.4); MONOCYTES # (AUTO) 0.8 X10'3 (0-0.9); MONOCYTES % (AUTO) 9.6 % (2-12); NEUTROPHILS # (AUTO) 6.2 X10'3 (1.8-7.7); NEUTROPHILS % (AUTO) 75.4 % (42-75); PLATELET COUNT 101 X10'3 (140-440); RED BLOOD COUNT 2.68 X10'6 (4.20-5.60); RED CELL DISTRIBUTION WIDTH 17.4 % (11.5-14.5); WHITE BLOOD COUNT 8.2 X10'3 (4.5-11.0)
[2019-09-17 06:38] LABS: ALANINE AMINOTRANSFERASE 25 U/L (12-78); ALBUMIN 2.5 G/DL (3.4-5.0); ALKALINE PHOSPHATASE 47 IU/L (46-116); ANION GAP 7 (8-16); ASPARTATE AMINO TRANSFERASE 51 U/L (10-37); BLOOD UREA NITROGEN 26 MG/DL (7-18); BUN/CREATININE RATIO 19.3 (6.6-38.0); CALCIUM 8.7 MG/DL (8.5-10.1); CHLORIDE 110 MMOL/L (99-107); CREATININE 1.35 MG/DL (0.40-0.90); GLUCOSE 103 MG/DL (70-104); POTASSIUM 4.4 MMOL/L (3.5-5.1); SODIUM 142 MMOL/L (135-145); TOTAL CARBON DIOXIDE 25.2 MMOL/L (24-32); TOTAL PROTEIN 5.1 G/DL (6.4-8.2); eGFR 37 ML/MIN
[2019-09-17] MEDS: lisinopril 20mg tablet PO SCH (07:50)
[2019-09-17] MEDS: pantoprazole 40mg Tablet.DR PO SCH (07:50)
[2019-09-17] MEDS: amiodarone 100mg tablet PO SCH (07:51)
[2019-09-17] MEDS: K and/or MAG REPLACEMENT MC SCH ×2 (08:00→19:16)
[2019-09-17] MEDS: enoxaparin 30mg/0.3ml syringe SUBCUT SCH (08:12)
[2019-09-17 11:00] VITALS: BP 157/56
[2019-09-17] MEDS: atorvastatin 20mg tablet PO SCH (20:48)
--- NOTE | 2019-09-17 22:01 | NUR ---
pt is confused and believes people are "making jokes" about her. She thinks people are "In the kitchen." We will continue to monitor her. She has been consoled and assured that we are here to take care of her.
[2019-09-17 22:45] VITALS: BP 174/59
[2019-09-18 02:25] LABS: CLARITY,URINE CLOUDY (Clear); COLOR,URINE YELLOW (Yellow); GLUCOSE, URINE NEGATIVE (Neg); KETONES,URINE NEGATIVE (Neg); LEUKOCYTE ESTERASE ,URINE NEGATIVE (Neg); NITRITES, URINE NEGATIVE (Neg); OCCULT BLOOD,URINE MODERATE (Neg); PH,URINE 5.5 (4.8-8.0); PROTEIN,URINE 100 mg/dl (Neg); UROBILINOGEN,URINE 0.2 E.U/dL (0.2-1.0)
[2019-09-18 02:26] LABS: UA COLLECTION TYPE STRAIGHT CATH
[2019-09-18 02:30] LABS: BACTERIA,URINE FEW /HPF (Neg); RBC,URINE 0-2 /HPF (0-2); SQUAMOUS EPITHELIAL CELL,UR FEW /LPF (FEW); WBC,URINE 0-4 /HPF (0-4)
[2019-09-18 02:31] LABS: AMORPHOUS URATES 3+
[2019-09-18] MEDS: traMADol 50MG tablet PO PRN ×2 (05:33→12:56)
[2019-09-18 06:00] VITALS: BP 179/62
--- NOTE | 2019-09-18 06:10 | NUR ---
Report given to katherine Kidd.
[2019-09-18 06:35] LABS: BASOPHILS # (AUTO) 0.1 X10'3 (0-0.2); BASOPHILS % (AUTO) 0.7 % (0-1); EOSINOPHILS # (AUTO) 0.3 X10'3 (0-0.9); EOSINOPHILS % (AUTO) 3.6 % (0-6); HEMATOCRIT 26.6 % (35.0-45.0); LYMPHOCYTES # (AUTO) 0.8 X10'3 (1.1-4.8); LYMPHOCYTES % (AUTO) 10.2 % (21-51); MEAN CORPUSCULAR HEMOGLOBIN 33.1 PG (27.0-31.0); MEAN CORPUSCULAR HGB CONC 33.7 g/dL (33.0-36.5); MEAN CORPUSCULAR VOLUME 98.2 FL (78-98); MEAN PLATELET VOLUME 8.3 FL (7.4-10.4); MONOCYTES # (AUTO) 0.7 X10'3 (0-0.9); MONOCYTES % (AUTO) 9.4 % (2-12); NEUTROPHILS # (AUTO) 5.7 X10'3 (1.8-7.7); NEUTROPHILS % (AUTO) 76.1 % (42-75); PLATELET COUNT 122 X10'3 (140-440); RED BLOOD COUNT 2.71 X10'6 (4.20-5.60); RED CELL DISTRIBUTION WIDTH 16.2 % (11.5-14.5); WHITE BLOOD COUNT 7.5 X10'3 (4.5-11.0)
[2019-09-18 06:52] LABS: ALANINE AMINOTRANSFERASE 26 U/L (12-78); ALBUMIN 2.5 G/DL (3.4-5.0); ALBUMIN/GLOBULIN RATIO 0.9 (1.1-1.5); ALKALINE PHOSPHATASE 45 IU/L (46-116); ANION GAP 8 (8-16); ASPARTATE AMINO TRANSFERASE 56 U/L (10-37); BILIRUBIN,TOTAL 1.5 MG/DL (0.1-1.0); BLOOD UREA NITROGEN 25 MG/DL (7-18); BUN/CREATININE RATIO 21.2 (6.6-38.0); CALCIUM 8.5 MG/DL (8.5-10.1); CHLORIDE 109 MMOL/L (99-107); CREATININE 1.18 MG/DL (0.40-0.90); GLUCOSE 100 MG/DL (70-104); POTASSIUM 3.8 MMOL/L (3.5-5.1); SODIUM 142 MMOL/L (135-145); TOTAL CARBON DIOXIDE 25.3 MMOL/L (24-32); TOTAL PROTEIN 5.2 G/DL (6.4-8.2); eGFR 43 ML/MIN
[2019-09-18] MEDS: pantoprazole 40mg Tablet.DR PO SCH (07:23)
[2019-09-18] MEDS: lisinopril 20mg tablet PO SCH (07:24)
[2019-09-18] MEDS: amiodarone 100mg tablet PO SCH (07:24)
[2019-09-18] MEDS: enoxaparin 30mg/0.3ml syringe SUBCUT SCH (07:25)
[2019-09-18 10:00] VITALS: BP 164/55
--- NOTE | 2019-09-18 12:45 | NUR ---
Received discharge orders from Dr. Sanchez to go to [facility] for short term rehab. TC placed to [place] (pts daughter) to inform of transfer to [facility]. Andreea Cargo arrived at 1245. Pt transferred from her bed to [facility] without difficulty. Pt pre-med with [employer] prior to discharge.
== END 2019-09-18 13:10 | DRG 470 ==
LOC: ER 22:11 → ED HOLD 09-15 03:03 → ORTHO 4S 09-15 03:50
PROVIDERS: ADMIT Internal Medicine; ATTEND Internal Medicine
PROC: 0SRR0JZ Replacement of Right Hip Joint, Femoral Surface with Synthetic Substitute, Open Approach (ICD-10-PCS; principal; 2019-09-15 08:20)
PROC: 30233N1 Transfusion of Nonautologous Red Blood Cells into Peripheral Vein, Percutaneous Approach (ICD-10-PCS; 2019-09-16)
DX: S72.011A Unspecified intracapsular fracture of right femur, initial encounter for closed fracture (principal); D62 Acute posthemorrhagic anemia; N17.9 Acute kidney failure, unspecified; I50.32 Chronic diastolic (congestive) heart failure; I13.0 Hypertensive heart and chronic kidney disease with heart failure and stage 1 through stage 4 chronic kidney disease, or unspecified chronic kidney disease; I48.0 Paroxysmal atrial fibrillation; Z96.619 Presence of unspecified artificial shoulder joint; K21.9 Gastro-esophageal reflux disease without esophagitis; W18.39XA Other fall on same level, initial encounter; E78.5 Hyperlipidemia, unspecified; N18.3 Chronic kidney disease, stage 3 (moderate); I25.10 Atherosclerotic heart disease of native coronary artery without angina pectoris; Z88.0 Allergy status to penicillin; Z88.4 Allergy status to anesthetic agent; Z95.2 Presence of prosthetic heart valve; Z87.11 Personal history of peptic ulcer disease; Z79.899 Other long term (current) drug therapy; Z85.3 Personal history of malignant neoplasm of breast; Y93.89 Activity, other specified; Y92.89 Other specified places as the place of occurrence of the external cause; Y99.8 Other external cause status; S42.001A Fracture of unspecified part of right clavicle, initial encounter for closed fracture
CPT/HCPCS: 36415; 70450; 71045; 72125; 72170; 73000; 73502; 73560; 73700; 80048; 80053; 81001; 82607; 84443; 85025; 85027; 85610; 86885; 86900; 86901; 86922; 87081; 93005; 97110; 97112; 97161; 97530; 99285; A4615; A7000; A9272; C1758; C1776; G0378; J0690; J1650; J1885; J2250; J2270; J2405; J3010; J3370; J7030; J7040; J7120; P9016